=== PATIENT | female | born 1980 | race American Indian/Alaskan Native ===

== ENCOUNTER 2016-06-25 20:11 | Emergency (ER) | payer MEDICAID ==
[2016-06-25 20:24] VITALS: BP 119/78
--- NOTE | 2016-06-27 08:47 | ED Elopement Review ---
ED Pt Elopement review - Call Back decision Pt Call Back Decision: No action required
== END 2016-06-26 04:40 | disposition left against medical advice (07) ==
LOC: ED 20:11
DX: R51 Headache (principal); R07.0 Pain in throat; Z53.21 Procedure and treatment not carried out due to patient leaving prior to being seen by health care provider

== ENCOUNTER 2017-11-23 08:38 | Emergency (ER) | payer MEDICAID ==
[2017-11-23 12:23] LABS: Bilirubin,Urine NEG (Negative); Blood,Urine NEG (Negative); Color,Urine Yellow (Yellow); Hyaline Casts,Urine 1 /LPF; Mucus,Urine 1+ /HPF; Protein,Urine <15 mg/dL mg/dL (Negative); Urobilinogen,Urine < 2.0 mg/dL (<2.0)
--- NOTE | 2017-11-23 12:30 | Emergency Department Report ---
Chief Complaint: Urogenital-Female Stated Complaint: RINGING IN EARS/FREQUENT URINATION/BACK PAIN Time Seen by Provider: 11/23/17 12:23 - HPI History of Present Illness: 37-year-old female presents to the emergency department with a complaint of very frequent urination, just about every 10 minutes. She also says that she's been having some pelvic and low back cramping or discomfort that is not just with urination. She has a history of tubal ligation and partial hysterectomy. No nausea, vomiting, diarrhea or constipation, vaginal bleeding or discharge. She also complains of some tinnitus that is a exacerbation of a chronic issue for her. No recent travel or sick contacts at home. She does not have a primary care physician or INSERTER. - ROS Review of Systems: Positive for frequent urination, pelvic cramping, low back pain Negative for nausea, vomiting, vaginal bleeding or discharge, fever - Exam Vital Signs: Vital Signs 11/23/17 09:11 Temperature 98.9 F Pulse Rate 60 Respiratory 18 Rate Blood Pressure 115/79 O2 Sat by Pulse 100 Oximetry Physical Exam: Heart and lungs sounds are normal to auscultation. Patient does not appear in any acute distress. No tenderness to palpation of the abdomen. MSE screening note: Focused history and physical exam performed. Due to findings the following was ordered: Urinalysis does not show any urinary tract infection. Patient will be seen by the mid-level provider. ED Disposition for MSE Condition: Stable Referrals: PRIMARY CARE [Primary Care Provider] - 3-5 Days
--- NOTE | 2017-11-23 13:13 | Emergency Department Report ---
ED Female HPI - General Chief complaint: Urogenital-Female Stated complaint: RINGING IN EARS/FREQUENT URINATION/BACK PAIN Time Seen by Provider: 11/23/17 12:23 Source: patient Mode of arrival: Ambulatory Limitations: No Limitations - History of Present Illness Initial comments: 37-year-old female past medical history partial hysterectomy uterine fibroids, ovarian cysts, recurrent bacterial vaginosis, tubal ligation 2007 presents with complaint of one year of intermittent pelvic discomfort. Slightly worse in the last few weeks. Patient denies fevers chills nausea vomiting. Does complain of increased urinary frequency. Denies hematuria or dysuria. Awake alert and oriented 3 not in acute distress. MD Complaint: pelvic pain Onset/Timin -: year(s) Location: suprapubic Radiation: suprapubic Severity: mild Consistency: intermittent Are you Now?: No Associated Symptoms: denies other symptoms - Related Data Previous Rx's Medication Instructions Recorded Last Taken Type Acetaminophen/Codeine [Tylenol #3] 1 tab PO Q6H PRN #10 tab 08/26/16 Unknown Rx Naproxen [Naprosyn] 500 mg PO BID #30 tablet 08/26/16 Unknown Rx Ibuprofen [Motrin] 800 mg PO Q8HR PRN #30 tablet 11/23/17 Unknown Rx Allergies Allergy/AdvReac Type Severity Reaction Status Date / Time No Known Allergies Allergy Verified 08/26/16 09:59 ED Review of Systems ROS: Stated complaint: RINGING IN EARS/FREQUENT URINATION/BACK PAIN Other details as noted in HPI Constitutional: denies: chills, fever Eyes: denies: eye pain, eye discharge, vision change ENT: denies: ear pain, throat pain Respiratory: denies: cough, shortness of breath, wheezing Cardiovascular: denies: chest pain, palpitations Endocrine: no symptoms reported Gastrointestinal: as per HPI (1 year of intermittent pelvic discomfort). denies : abdominal pain, nausea, diarrhea Genitourinary: as per HPI. denies: urgency, dysuria, discharge Musculoskeletal: denies: back pain, joint swelling, arthralgia Skin: denies: rash, lesions Neurological: denies: headache, weakness, paresthesias Psychiatric: denies: anxiety, depression Hematological/Lymphatic: denies: easy bleeding, easy bruising ED Past Medical Hx - Past Medical History Previous Medical History?: Yes Additional medical history: ovarian cysts, ringing in the ears, frequent urination, Bacterial vaginosis - Surgical History Past Surgical History?: Yes Additional Surgical History: . tubal ligation. partial hysterectomy. - Social History Smoking Status: Never Smoker Substance Use Type: Non Opiate Pain - Medications Home Medications: Home Medications Medication Instructions Recorded Confirmed Last Taken Type Acetaminophen/Codeine [Tylenol #3] 1 tab PO Q6H PRN #10 tab 08/26/16 Unknown Rx Naproxen [Naprosyn] 500 mg PO BID #30 tablet 08/26/16 Unknown Rx Ibuprofen [Motrin] 800 mg PO Q8HR PRN #30 tablet 11/23/17 Unknown Rx ED Physical Exam - General Limitations: No Limitations General appearance: alert, in no apparent distress - Head Head exam: Present: atraumatic, normocephalic - Eye Eye exam: Present: normal appearance - ENT ENT exam: Present: mucous membranes moist - Neck Neck exam: Present: normal inspection - Respiratory Respiratory exam: Present: normal lung sounds bilaterally. Absent: respiratory distress - Cardiovascular Cardiovascular Exam: Present: regular rate, normal rhythm. Absent: systolic murmur, diastolic murmur, rubs, gallop - GI/Abdominal GI/Abdominal exam: Present: soft, normal bowel sounds - External exam: Present: normal external exam Speculum exam: Present: normal speculum exam Bi-manual exam: Present: adnexal tenderness (slight bilateral adnexal tenderness on exam no cervical motion tenderness) - Extremities Exam Extremities exam: Present: normal inspection - Back Exam Back exam: Present: normal inspection - Neurological Exam Neurological exam: Present: alert, oriented X3 - Psychiatric Psychiatric exam: Present: normal affect, normal mood - Skin Skin exam: Present: warm, dry, intact, normal color. Absent: rash ED Course Vital Signs 11/23/17 09:11 Temperature 98.9 F Pulse Rate 60 Respiratory 18 Rate Blood Pressure 115/79 O2 Sat by Pulse 100 Oximetry ED Medical Decision Making - Medical Decision Making A/P: Pelvic pain, chronic 1-SHOWS BILATERAL OVARIAN CYSTS WITH GOOD OVARIAN BLOOD FLOW. NO TORSION 2-wet prep negative for any infections, urinalysis unremarkable 3-follow-up with [facility]. Patient states this has been ongoing for more than one year Critical care attestation.: If time is entered above; I have spent that time in minutes in the direct care of this critically ill patient, excluding procedure time. ED Disposition Clinical Impression: Pelvic pain Ovarian cyst Qualifiers: Laterality: bilateral Qualified Code(s): N83.201 - Unspecified ovarian cyst, right side; N83.202 - Unspecified ovarian cyst, left side Disposition: TO HOME OR SELFCARE Is pt being admited?: No Does the pt Need Aspirin: No Condition: Stable Instructions: Chronic Pelvic Pain in Women (ED), Ovarian Cyst (ED) Prescriptions: Ibuprofen [Motrin] 800 mg PO Q8HR PRN #30 tablet PRN Reason: Pain Referrals: [facility] [Provider Group] - 3-5 Days [facility] [Provider Group] - 3-5 Days Forms: Work/School Release Form(ED) Time of Disposition: 15:01
--- NOTE | 2017-11-23 14:14 | Ultrasound Report ---
ULTRASOUND PELVIC DUPLEX DOPPLER COMPLETE ULTRASOUND TRANSVAGINAL HISTORY: Pelvic pain, ovarian cysts. COMPARISON: None at this facility. TECHNIQUE: Transabdominal and transvaginal ultrasound with color and spectral doppler interrogation. FINDINGS: Uterus: The uterus was not identified. The patient gives a history of partial hysterectomy in 2007. Endometrium: Not visualized. Right ovary: 3.3 x 2.2 x 2.8 cm. A 2.5 cm exophytic cyst is noted from the right ovary. Left ovary: 3.7 x 1.6 x 2.9 cm. A 1.2 cm slightly complex cyst containing debris is identified. No pelvic fluid or mass is identified. Spectral Doppler waveforms demonstrate arterial flow to both ovaries. IMPRESSION: Partial hysterectomy. Bilateral ovarian cysts as described.
[2017-11-23 16:25] VITALS: BP 132/84
== END 2017-11-23 15:30 | disposition home or self-care (01) ==
LOC: ED 08:38
DX: N83.201 Unspecified ovarian cyst, right side (principal); R10.2 Pelvic and perineal pain; Z90.711 Acquired absence of uterus with remaining cervical stump; Z98.51 Tubal ligation status
CPT/HCPCS: 76830; 81001; 82962; 87210; 87591; 93975

== ENCOUNTER 2018-06-16 13:40 | Emergency (ER) | payer MEDICAID ==
[2018-06-16] MEDS ORDERED: NACL 0.9% 1000 ML 1,000 ML IV ONE (14:20)
[2018-06-16 14:36] LABS: Basophils % (Auto) 0.9 % (0.0-1.8); Eosinophils # (Auto) 0.1 K/mm3 (0.0-0.4); Eosinophils % (Auto) 1.8 % (0.0-4.3); Hematocrit 40.4 % (30.3-42.9); Hemoglobin 12.6 gm/dl (10.1-14.3); Lymphocytes # (Auto) 1.9 K/mm3 (1.2-5.4); Lymphocytes % (Auto) 33.6 % (13.4-35.0); Mean Corpuscular HGB Conc 31 % (30-34); Mean Corpuscular Volume 74 fl (79-97); Monocytes # (Auto) 0.5 K/mm3 (0.0-0.8); Monocytes % (Auto) 9.6 % (0.0-7.3); Platelet Count 133 K/mm3 (140-440); Red Blood Count 5.49 M/mm3 (3.65-5.03); Red Cell Distribution Width 15.3 % (13.2-15.2)
[2018-06-16 14:58] LABS: Alanine Aminotransferase 11 units/L (7-56); Albumin 4.5 g/dL (3.9-5); BUN/Creatinine Ratio 14; Blood Urea Nitrogen 10 mg/dL (7-17); Calcium 9.9 mg/dL (8.4-10.2); Hemolysis Index 6
[2018-06-16 15:59] LABS: Bilirubin,Urine NEG (Negative); Blood,Urine NEG (Negative); Color,Urine Yellow (Yellow); Protein,Urine <15 mg/dL mg/dL (Negative); Urobilinogen,Urine < 2.0 mg/dL (<2.0)
--- NOTE | 2018-06-16 16:49 | Emergency Department Report ---
ED Abdominal Pain HPI - General Chief Complaint: Nausea/Vomiting/Diarrhea Stated Complaint: STOMACH PAIN/NAUSEA/ Time Seen by Provider: 06/16/18 16:31 Source: patient Mode of arrival: Ambulatory Limitations: No Limitations - History of Present Illness Initial Comments: She is 38-year-old female with process versus normal complaints of generalized abdominal pain and nausea vomiting diarrhea. Patient states that her symptoms started yesterday. Patient states her symptoms are worsening. Patient states her abdominal pain is worse on the right side than the left. Patient states the pain is better with rest and worse with palpation and eating and movement. Patient denies fever and chills. Patient denies blood in stool. Patient denies blood in vomitus. Patient denies chest pain shortness of breath. MD Complaint: abdominal pain -: Sudden Location: diffuse Radiation: none Migration to: no migration Severity: moderate, severe Severity scale (0 -10): 4 Quality: aching Consistency: constant Improves With: rest Worsens With: eating, vomiting, movement Associated Symptoms: nausea, vomiting, diarrhea. denies: fever, chills, constipation, dysuria, hematemesis, hematochezia, melena, hematuria, anorexia, syncope - Related Data LMP (females 10-50): unknown (at partial hysto) Previous Rx's Medication Instructions Recorded Last Taken Type Acetaminophen/Codeine [Tylenol #3] 1 tab PO Q6H PRN #10 tab 08/26/16 Unknown Rx Naproxen [Naprosyn] 500 mg PO BID #30 tablet 08/26/16 Unknown Rx Ibuprofen [Motrin] 800 mg PO Q8HR PRN #30 tablet 11/23/17 Unknown Rx Ondansetron [Zofran Odt] 4 mg PO Q8HR PRN #15 tab.rapdis 06/16/18 Unknown Rx Allergies Allergy/AdvReac Type Severity Reaction Status Date / Time No Known Allergies Allergy Verified 08/26/16 09:59 ED Review of Systems ROS: Stated complaint: STOMACH PAIN/NAUSEA/ Other details as noted in HPI Constitutional: denies: chills, fever Eyes: denies: eye pain, eye discharge, vision change ENT: denies: ear pain, throat pain Respiratory: denies: cough, shortness of breath, wheezing Cardiovascular: denies: chest pain, palpitations Endocrine: no symptoms reported Gastrointestinal: abdominal pain, nausea, vomiting, diarrhea. denies: constipation, hematemesis, melena, hematochezia Genitourinary: denies: urgency, dysuria, discharge Musculoskeletal: denies: back pain, joint swelling, arthralgia Skin: denies: rash, lesions Neurological: denies: headache, weakness, paresthesias Psychiatric: denies: anxiety, depression Hematological/Lymphatic: denies: easy bleeding, easy bruising ED Past Medical Hx - Past Medical History Previous Medical History?: Yes Additional medical history: ovarian cysts, ringing in the ears, frequent urination, Bacterial vaginosis - Surgical History Past Surgical History?: Yes Additional Surgical History: . tubal ligation. partial hysterectomy. - Family History Family history: no significant - Social History Smoking Status: Never Smoker Substance Use Type: Alcohol - Medications Home Medications: Home Medications Medication Instructions Recorded Confirmed Last Taken Type Acetaminophen/Codeine [Tylenol #3] 1 tab PO Q6H PRN #10 tab 08/26/16 Unknown Rx Naproxen [Naprosyn] 500 mg PO BID #30 tablet 08/26/16 Unknown Rx Ibuprofen [Motrin] 800 mg PO Q8HR PRN #30 tablet 11/23/17 Unknown Rx Ondansetron [Zofran Odt] 4 mg PO Q8HR PRN #15 tab.rapdis 06/16/18 Unknown Rx ED Physical Exam - General Limitations: No Limitations General appearance: alert, in no apparent distress - Head Head exam: Present: atraumatic, normocephalic - Eye Eye exam: Present: normal appearance - ENT ENT exam: Present: mucous membranes moist - Neck Neck exam: Present: normal inspection - Respiratory Respiratory exam: Present: normal lung sounds bilaterally. Absent: respiratory distress - Cardiovascular Cardiovascular Exam: Present: regular rate, normal rhythm. Absent: systolic murmur, diastolic murmur, rubs, gallop - GI/Abdominal GI/Abdominal exam: Present: soft, tenderness (epigastric and right upper quadrant tenderness), normal bowel sounds - Extremities Exam Extremities exam: Present: normal inspection - Back Exam Back exam: Present: normal inspection - Neurological Exam Neurological exam: Present: alert, oriented X3 - Psychiatric Psychiatric exam: Present: normal affect, normal mood - Skin Skin exam: Present: warm, dry, intact, normal color. Absent: rash ED Course Vital Signs 06/16/18 06/16/18 06/16/18 14:17 19:20 20:35 Temperature 98.9 F 98.7 F 98.5 F Pulse Rate 79 62 60 Respiratory 18 18 18 Rate Blood Pressure 129/72 Blood Pressure 123/76 118/72 [Left] O2 Sat by Pulse 100 100 99 Oximetry - Reevaluation(s) Reevaluation #1: Discussed all results with patient. Patient stable for discharge. Patient voiced understanding of instructions and results. She denies nausea and vomiting and diarrhea and abdominal pain at this time. 06/16/18 20:15 ED Medical Decision Making - Lab Data Result diagrams: 06/16/18 14:28 06/16/18 14:28 - Radiology Data Radiology results: report reviewed FINAL REPORT PROCEDURE: CT abdomen and pelvis with contrast. TECHNIQUE: Computerized axial tomography of the abdomen and pelvis was performed after the IV injection of iodinated nonionic contrast. HISTORY: Abdominal pain. COMPARISON: No prior studies are available for comparison. FINDINGS: The lung bases are clear. There are no pleural effusions. The heart size is normal. The liver, pancreas and spleen appear normal. The gallbladder is present. There is no biliary dilatation. The adrenal glands are not enlarged. Both kidneys appear normal in size and configuration. The abdominal aorta has a normal caliber. There is no retroperitoneal adenopathy. The unopacified gastrointestinal tract is unremarkable. The appendix is not identified and may have been removed. The bladder is unremarkable. The uterus has been removed. There is a tiny amount of free fluid in the cul-de-sac. The regional skeleton appears intact. IMPRESSION: Previous hysterectomy. Possible previous appendectomy. No evidence of acute disease in the abdomen or pelvis. Transcribed By: [facility] Dictated By: KINDRA BENAVIDEZ MD Electronically Authenticated By: KINDRA BENAVIDEZ MD Signed Date/Time: 06/16/182005 - Medical Decision Making She has a 38-year-old with epigastric abdominal pain, nausea and vomiting and diarrhea. Findings consistent with viral gastroenteritis. Labs reviewed and unremarkable. CT reviewed. Discussed all results with patient. Patient stable for discharge. Patient discharged home. Patient given discharge instructions. Patient given a return to ER structures. Patient given medication instructions. Patient given diet instructions. Patient was understanding of instructions - Differential Diagnosis gastritis. Nausea vomiting diarrhea. Abdominal pain. Critical care attestation.: If time is entered above; I have spent that time in minutes in the direct care of this critically ill patient, excluding procedure time. ED Disposition Clinical Impression: Gastroenteritis, Nausea vomiting and diarrhea Abdominal pain Qualifiers: Abdominal location: generalized Qualified Code(s): R10.84 - Generalized abdominal pain Disposition: TO HOME OR SELFCARE Is pt being admited?: No Does the pt Need Aspirin: No Condition: Stable Instructions: Gastroenteritis (ED), Acute Nausea and Vomiting (ED), Abdominal Pain (ED) Additional Instructions: Patient follow up with primary care in 3-5 days. Patient to return to ER if condition worsens. Patient to eat a Brat diet. Patient take Tylenol or ibuprofen when necessary pain. Patient to increase water. Patient to rest. Prescriptions: Ondansetron [Zofran Odt] 4 mg PO Q8HR PRN #15 tab.rapdis PRN Reason: Nausea And Vomiting Referrals: PRIMARY CARE, [Primary Care Provider] - 3-5 Days Time of Disposition: 20:20
--- NOTE | 2018-06-16 20:06 | Cat Scan Report ---
FINAL REPORT PROCEDURE: CT abdomen and pelvis with contrast. TECHNIQUE: Computerized axial tomography of the abdomen and pelvis was performed after the IV inject ion of iodinated nonionic contrast. HISTORY: Abdominal pain. COMPARISON: No prior studies are available for comparison. FINDINGS: The lung bases are clear. There are no pleural effusions. The heart size is normal. The liver, pancre as and spleen appear normal. The gallbladder is present. There is no biliary dilatation. The adrenal glands are not enlarged. Both kidneys appear normal in size and configuration. The abdominal aorta hills s a normal caliber. There is no retroperitoneal adenopathy. The unopacified gastrointestinal tract is unremarkable. The appendix is not identified and may have been removed. The bladder is unremarkable. The uterus has been removed. There is a tiny amount of free fluid in the cul-de-sac. The regional [place] appears intact. IMPRESSION: Previous hysterectomy. Possible previous appendectomy. No evidence of acute disease in the abdomen or pelvis.
[2018-06-16 20:48] VITALS: BP 118/72
== END 2018-06-16 20:35 | disposition home or self-care (01) ==
LOC: ED 13:40
DX: A08.4 Viral intestinal infection, unspecified (principal); Z98.51 Tubal ligation status; Z90.711 Acquired absence of uterus with remaining cervical stump
CPT/HCPCS: 36415; 74177; 80053; 81001; 83690; 85025; 96360; 96361; 99284; J7030; Q9967

== ENCOUNTER 2019-09-04 09:40 | Emergency (ER) | payer MEDICAID ==
[2019-09-04 09:54] VITALS: BP 125/70
--- NOTE | 2019-09-04 11:13 | Emergency Department Report ---
Chief Complaint: Upper Respiratory Infection Stated Complaint: FLU SYM Time Seen by Provider: 09/04/19 11:10 - HPI History of Present Illness: 39-year-old -[place] female presents to the emergency room for runny nose and sneezing that started today. Patient denies any fever mild cough. No coughing during examination. Patient has no past medical history currently takes no medications on a daily basis has no known drug allergies - Exam Vital Signs: Vital Signs 09/04/19 09:54 Temperature 98.1 F Pulse Rate 62 Respiratory 20 Rate Blood Pressure 125/70 [Right] O2 Sat by Pulse 100 Oximetry Physical Exam: Gen: alert oriented NAD HEENT: Watery eyes nasal congestion with nasal secretions Cardic: regular rate and rhythm no murmurs appreciated Resp: Clear to auscultation bilateral no wheezing no rales or rhonchi. Abdomen: Soft nontender nondistended normal bowel sounds. MSE screening note: Focused history and physical exam performed. Due to findings the following was ordered: 39-year-old -[place] female presents to the emergency room for runny nose and sneezing that started today. Patient denies any fever mild cough. No coughing during examination. Patient has no past medical history currently takes no medications on a daily basis has no known drug allergies Patient has no contacts Covbid 19 has not traveled. Patient can take [id number] Zyrtec's or Claritin for allergies. She should follow-up with her primary care provider if she has any further concerns ED Disposition for MSE Disposition: Z- MED SCREENING EXAM-LEFT Is pt being admited?: No Does the pt Need Aspirin: No Condition: Stable Additional Instructions: Take [id number] Claritin or Zyrtec's. Follow-up with your primary care provider. Referrals: PRIMARY CARE [Primary Care Provider] - 3-5 Days [facility] [Provider Group] - 3-5 Days Forms: Work/School Release Form(ED)
== END 2019-09-04 11:17 | disposition left against medical advice (07) ==
LOC: ED 09:40
DX: R06.7 Sneezing (principal); R09.89 Other specified symptoms and signs involving the circulatory and respiratory systems
CPT/HCPCS: 99281